=== PATIENT | female | born 1945 | race Caucasian/White ===

== ENCOUNTER → 2021-05-27 | Outpatient (CLI) | payer OTHER ==
[~2021-05-27] MED LIST: ALENDRONATE SOD70 MG PO; AMITRIPTYLINE100 MG PO; AMITRIPTYLINE150 MG PO; ASPIRIN81 MG PO; ATORVASTATIN CA20 MG PO; CLINDAMYCIN HC300 MG PO; ELIQUIS 2.5 MG2.5 MG PO; FEOSOL325 MG PO; FLAGYL500 MG PO; FLUOXETINE HCL20 M1 PO; IBU800 MG PO; IBUPROFEN800 MG PO; IMODIUM CAP 2 MG2 MG PO; KLOR-CON M1010 MEQ PO; LEVAQUIN500 MG PO; LISINOPRIL10 MG PO; LISINOPRIL40 MG PO; LOPRESSOR 25 MG25 MG PO; LOPRESSOR 50 MG50 MG PO; METOPROLOL TART50 MG PO; NORVASC10 MG PO; OMEPRAZOLE20 MG PO; PERCOCET 10-321 EACH PO; PROBIOTIC1 EAC3 PO; PROTONIX40 M1 PO; ULTRAM50 MG PO; VITAMIN B 12; VITAMIN D21250 MCG PO; ZESTRIL40 MG PO
== END ==
LOC: KOH-I 10:37
DX: M79.671 Pain in right foot (principal); Z18.89 Other specified retained foreign body fragments
CPT/HCPCS: 73630; 73700

== ENCOUNTER → 2021-05-29 | Outpatient (CLI) | payer OTHER ==
[2021-05-29 10:29] LABS: HEMOGLOBIN 12.4 gm/dl (12.3-15.3); RED BLOOD COUNT 4.07 M/UL (4.00-5.10); WHITE BLOOD COUNT 8.8 K/UL (4.5-11.0)
== END ==
LOC: OPSV2 09:20
PROVIDERS: Podiatrist Foot & Ankle Surgery
DX: Z01.812 Encounter for preprocedural laboratory examination (principal)
CPT/HCPCS: 36415; 80048; 85027

== ENCOUNTER → 2021-06-04 | Day surgery (SDC) | payer OTHER | END | disposition home or self-care (01) | LOC: OR 06:01 | DX: M60.271 Foreign body granuloma of soft tissue, not elsewhere classified, right ankle and foot (principal); I10 Essential (primary) hypertension; K21.9 Gastro-esophageal reflux disease without esophagitis; M19.90 Unspecified osteoarthritis, unspecified site; Z96.651 Presence of right artificial knee joint; Z79.899 Other long term (current) drug therapy; Z20.822 Contact with and (suspected) exposure to COVID-19 | CPT/HCPCS: 73650; 76000; J0690; J1100; J1885; J2001; J2405; J2704; J2795; J3010; J3370; J7120; U0002 ==